=== PATIENT | female | born 1975 | race American Indian/Alaskan Native ===

== ENCOUNTER 2024-12-11 22:23 | Emergency (ER) | payer MEDICAID, SELFPAY ==
[2024-12-11 22:24] VITALS: BP 173/94; PULSE 93; RESP 17; TEMP 36.6; O2SAT 99; BMI 31.0
--- NOTE | 2024-12-11 22:44 | EDNOTE_ITS ---
ED Medical Clearance RME/HPI General Stated complaint: MEDICAL CLEARANCE Time Seen by Provider: 12/11/24 22:27 Arrival date/time: 12/11/24 22:23 RME / HPI RME / HPI Narrative: Dr. Donoh[facility] Main ED Evaluation: 49yo female WILLOW FISHER presents to the ED for a medical clearance. Patient states she's had a rash to her arms and ankles and BLE swelling for the last 1.5 months, reporting her rash has gotten worse over the last two weeks. Patient denies any chest pain, shortness of breath, cough, fever, chills or any other associated symptoms. No known allergies. Related Information Allergies Allergy/AdvReac Type Severity Reaction Status Date / Time NKA* Allergy Uncoded 05/23/10 11:28 Review of Systems Review of Systems Systems Reviewed: All systems reviewed, normal except as documented ED Exam Narrative Physical exam: GENERAL APPEARANCE: alert and oriented x 4, well-developed, well-nourished, no acute distress VITALS: All vitals were reviewed and the pulse ox is % on room air, which is normal according to my interpretation. HEENT: Normocephalic, atraumatic; pupils equal, round, reactive to light; EOMI; mucous membranes pink, moist; oropharynx clear NECK: Supple LUNGS: CTABL; no wheezes, no rales, no rhonchi HEART: Regular rate, regular rhythm; normal S1, S2; no murmurs ABDOMEN: non distended; normal BS; soft, no tenderness, no guarding, no rebound; no masses, no organomegaly, no hernia BACK: no CVA tenderness EXTREMITIES: atraumatic; nonpitting edema bilaterally NEUROLOGIC: awake; alert and oriented x4; cranial nerves II-XII grossly intact; no focal sensory or motor deficits PSYCHIATRIC: appropriate mood and affect SKIN: warm, dry, scaly plaque-like nonraised rash to the limbs and trunk with chronic color changes Course Quality Measures none Vital Signs Vital signs: Vital Signs Temperature 97.9 F 12/11/24 22:24 Pulse Rate 93 12/11/24 22:24 Respiratory Rate 17 12/11/24 22:24 Blood Pressure 173/94 H 12/11/24 22:24 Pulse Oximetry (%) 99 12/11/24 22:24 Oxygen Delivery Method Room Air 12/11/24 22:24 Medical Clearance MDM Narrative MDM Narrative:: Scribe Attestation: 12/11/24 - Shabana Contreras am scribing for and in the presence of Dr. Donohue. Patient data External records reviewed:: [facility] previous records (Per chart review, patient has no previous ED visits or admissions to this facility.) Clinical information provided by:: patient Social determinants that could affect healthcare access:: none Patient has the following chronic illnesses:: none How is presenting disease/condition affected by chronic disease/condition?: no chronic disease Evaluation data The following diagnostics were reviewed and interpreted by me:: other (specify) (none) Lab and/or radiology exams considered but not ordered:: none Interpretation Summary: none Medications / Prescriptions Medications or Prescriptions considered but not ordered:: none Medication administrations:: none Consultations Consultation(s) initiated? (list below): No Diagnosis Medical Clearance Differential Diagnosis: other (psoriasis, eczema, viral rash) Most likely diagnosis given after review of the tests above:: see below Admission Indicated Admission indicated?: not indicated Admission Request Was there a request for admission?: No Disposition Plan Disposition Plan: Discharge Discharge Attestation Discharge Attestation: The patient and all family members were given an opportunity to ask questions and understood the discharge instructions. Discharge instructions specifically effects, indications for sooner follow up or return to the emergency department, and the expected course of current diagnosis. Patient condition: Stable Discharge Plan Plan Patient Disposition: [facility]/Court/Law Disposition Comment: Stable for discharge and please custody Patient condition on transfer: Stable Prescriptions/Referrals Referrals: [facility] [Outside] - In 1 week Problem List Clinical Impression: Rash, Pedal edema Patient/Caregiver Discharge Instructions Discharge Activity: activity as tolerated Education Materials: ED Leg Swelling in Both Legs Additional Instructions: Please return to the emergency department for any worsening or any further medical problems Otherwise you should follow-up with your primary care doctor within the next sev eral days Print Language: Albanian Stand Alone Forms: [facility] Award Info., Patient Portal Info Letter
[2024-12-11 22:51] VITALS: BP 153/72; PULSE 78; RESP 16; TEMP 36.7; O2SAT 98
== END 2024-12-11 22:51 ==
LOC: SERX 22:58
PROVIDERS: Emergency Provider Emergency Medicine
DX: Z02.89 Encounter for other administrative examinations (principal); R21 Rash and other nonspecific skin eruption; R60.0 Localized edema
CPT/HCPCS: 99281